=== PATIENT | male | born 1960 | race Caucasian/White ===

== ENCOUNTER 2024-10-07 20:13 | Emergency (ER) | payer OTHER, MEDICARE, SELFPAY ==
[2024-10-07 20:34] VITALS: BP 127/59
[2024-10-07 20:42] VITALS: BMI 39.2
--- NOTE | 2024-10-07 20:54 | ED.GENMED ---
History of Present Illness
<Belle Stephens PA-C - Last Filed: 10/08/24 12:05>
General
Chief Complaint: Fall
Source: patient
Exam Limitations: none
Time Seen by Provider: 10/07/24 20:32
History of Present Illness
History of Present Illness:
64yoM with a history of hypertension, hyperlipidemia, obesity, and depression presenting via EMS for evaluation after a fall around 6 PM this evening. Patient was driving home from his daughter's house. He attempted to get out of the car when his
left foot got caught causing him to fall forward. He wears a boot on the left foot for a chronic heel wound and was last seen by wound care earlier today. He lost his bowels while he was falling. He struck his head but adamantly denies any loss
of consciousness. He was unable to get up after the fall and EMS had to be called. He states he would not be here if he was able to get up. He has no complaints at this time and feels embarassed about what happened. He denies any headache, neck
pain, back pain, chest pain, shortness of breath. He does not take any blood thinners. Last Tdap was <5 years ago.
Phy Exam
<Belle Stephens PA-C - Last Filed: 10/08/24 12:05>
General Physical Exam
General Presentation: well appearing and no apparent distress
General Skin: warm and dry
General Habitus: normal
General Mental: alert
ENT Exam
ENT Exam: normocephalic and other (Small abrasions noted to right temporal region. No cervical spine tenderness.)
Cardiovascular Exam
Cardiovascular Exam: regular rate/rhythm
Pulmonary Exam
Pulmonary Exam: lungs clear, no respiratory distress, no rales, no crackles, no rhonchi and no wheezing
Neurological Exam
Neurological Exam: alert
Jerry Coma Scale
Eye Opening: Spontaneous
Verbal Response: Oriented
Motor Response: Obeys Commands
GCS Total Score: 15
Skin Exam
Skin Exam: normal color, warm/dry and other (Abrasions noted to R knee)
Psychiatric Exam
Psychiatric Exam: normal mood/affect
<Yovani Angel PA-C - Last Filed: 10/08/24 09:56>
Jerry Coma Scale
GCS Total Score: 15
Course
<Belle Stephens PA-C - Last Filed: 10/08/24 12:05>
Orders/Labs/Results
Orders:
Orders
10/07/24 20:[address] Non Medication Order As Directed
Physician Order: ambulation trial
Above order entered?: Yes
10/07/24 22:08
Case Management Consult ONCE
Case Management Consult: Discharge Planning
10/08/24 08:36
Physical Therapy Consult [Pt Eval And Treat] Stat
Treatment: dc planning, fall, pt wears a boot for wounds, lives alone, uses a cane
Activity Level: Out of Bed- Ad Roxanne
Vital Signs
Initial and Last Documented VS:
Initial Vital Signs
Temp Pulse Resp BP Pulse Ox
98.5 F 98 20 127/59 96
10/07/24 20:34 10/07/24 20:34 10/07/24 20:34 10/07/24 20:34 10/07/24 20:34
Last Documented Vital Signs
Temp Pulse Resp BP Pulse Ox
98.1 F 103 16 163/85 97
10/08/24 06:44 10/08/24 06:44 10/08/24 06:44 10/08/24 06:44 10/08/24 06:44
<Yovani Angel PA-C - Last Filed: 10/08/24 09:56>
Orders/Labs/Results
Orders:
Orders
10/07/24 20:[address] Non Medication Order As Directed
Physician Order: ambulation trial
Above order entered?: Yes
10/07/24 22:08
Case Management Consult ONCE
Case Management Consult: Discharge Planning
10/08/24 08:36
Physical Therapy Consult [Pt Eval And Treat] Stat
Treatment: dc planning, fall, pt wears a boot for wounds, lives alone, uses a cane
Activity Level: Out of Bed- Ad Roxanne
Vital Signs
Initial and Last Documented VS:
Initial Vital Signs
Temp Pulse Resp BP Pulse Ox
98.5 F 98 20 127/59 96
10/07/24 20:34 10/07/24 20:34 10/07/24 20:34 10/07/24 20:34 10/07/24 20:34
Last Documented Vital Signs
Temp Pulse Resp BP Pulse Ox
98.1 F 103 16 163/85 97
10/08/24 06:44 10/08/24 06:44 10/08/24 06:44 10/08/24 06:44 10/08/24 06:44
Martinlt;Belle Stephens PA-C - Last Filed: 10/08/24 12:05>
MDM/Problems Addressed
Differential Diagnosis Includes:
64yoM presenting after a mechanical fall getting out of his car. Defecated on himself during the fall and was unable to get up prompting EMS call. He has abrasions noted to his R temporal region but denies any headache and is not on blood thinners.
Only other injury on exam is R knee abrasions. Differential diagnosis includes but is not limited to: Closed head injury, concussion, doubt intracranial hemorrhage
Offered head CT which patient declines. Patient feels well enough to go home. Unfortunately, patient left his phone and wallet in his car which is in his driveway. He does not recall any contact information for his family members. There is a
phone number listed for the daughter in the chart but this is out of order. Patient also does not have his cane with him and lives alone. Nursing staff also concerned because he was having some unsteadiness with ambulation which patient states is
baseline for him. He has no safe transport home this evening. He requested to have a cab take him home. Nursing staff attempted to call a taxi for him but taxi service did not answer. At this point, will keep patient in the ED overnight and
consult case management in the morning.
<Belle Stephens PA-C - Last Filed: 10/08/24 12:05>
*Pulse Oximetry
SaO2: 96
Oxygen Mode of Delivery: Room air
<Yovani Angel PA-C - Last Filed: 10/08/24 09:56>
*Pulse Oximetry
Patient hypoxic: no
*Critical Care Note
Total Time (30-74mins, 75-104mins- exclusive of procedures): Not Applicable
<Yovani Angel PA-C - Last Filed: 10/08/24 09:56>
Update Note
Update Note:
Patient seen by physical therapy and case management and cleared for discharge to home, provided with transportation no further medical needs at this time
ED Attending Note
<Belle Stephens PA-C - Last Filed: 10/08/24 12:05>
-
Portions of this chart may have been created with voice recognition software.� Occasional wrong word or��sound alike� substitutions may have occurred due to the inherent limitations of voice recognition software.
Discharge Plan
Departure
Patient Disposition: Home (Routine Discharge)
Date of Disposition: 10/08/24
Time of Disposition: 09:55
Patient with high blood pressure during this ER visit?: No
Discharge Problem:
Ground-level fall
Instructions: Preventing falls in adults
Referrals:
Miguelito Forte, DO [Family Provider, Internal Medicine]
Interventions
Interventions:
*Risk Screen - Suicide Last Done: 10/07/24 20:40
*General Assessment Last Done: 10/07/24 20:40
*Neglect/Abuse Screening Last Done: 10/07/24 20:40
*ED- Fall Risk Assessment Last Done: 10/07/24 20:40
*ED COVID-19 Vaccine History Last Done: 10/07/24 20:40
*Nursing Disposition Last Done: 10/08/24 10:01
ED-Musculoskeletal Assessment Last Done: 10/07/24 20:43
ED- Neurological Assessment Last Done: 10/07/24 20:43
ED-Skin Assessment Last Done: 10/07/24 20:43
Discharge Date and Time
Discharge Date/Time: 10/08/24 10:02
Print Language: VIETNAMESE
[2024-10-08 06:44] VITALS: BP 163/85
--- NOTE | 2024-10-08 09:28 | CM ---
Addendum entered by Goldie Dobson 10/08/24 09:38:
PT eval completed. No needs
Original Note:
Patient seen at bedside
IA completed
Insurance verified through [facility] (federicot with [facility]) - admissions called - patient did not have his wallet
[employer] policy #: [id number]
Medicare [id number]
Patient reports getting out of truck and his boot 'got caught' and fell to ground
Patient lives alone in an apartment, [address]
PLOF: independent, uses a cane
DME: Cane
Current with [facility], notified Shereen from [facility]
Patient states does not have transportation home, son lives in [place], and daughter out of country
Will provide Lyft for transportation
PCP: Miguelito Forte
Pharmacy: [facility]
PLAN: Home with [facility]
CM will set up LYFT
== END 2024-10-08 10:02 | disposition home or self-care (01) ==
LOC: EMR 20:13
PROVIDERS: EMERGENCY PHYSICIAN Emergency Medicine; FAMILY PHYSICIAN Internal Medicine
DX: S00.81XA Abrasion of other part of head, initial encounter (principal); I10 Essential (primary) hypertension; E78.5 Hyperlipidemia, unspecified; E66.9 Obesity, unspecified; F32.A Depression, unspecified; Z68.39 Body mass index [BMI] 39.0-39.9, adult; V48.4XXA Person boarding or alighting a car injured in noncollision transport accident, initial encounter
CPT/HCPCS: 99283; 99281